=== PATIENT | female | born 1970 | race Hispanic/Latino ===

== ENCOUNTER 2016-05-04 12:51 | Inpatient (IN) | payer MEDICAID ==
--- NOTE | 2016-05-04 13:08 | Emergency Department Report ---
Chief Complaint: Neuro Symptoms/Deficit Stated Complaint: LFT SIDE NUMBNESS Time Seen by Provider: 05/04/16 13:07 - HPI History of Present Illness: Patient here reports that she's having left-sided numbness and tingling especially to her arm. She reports that she is weak on the left side. She says she woke up this morning noted around 9:00 and she started experiencing the symptoms. Patient is a diabetic and blood glucoses less than 250. She denies any chest pain or shortness of breath. Patient reports headache but it is not new she says she has regular headaches. any history of hypertension, elevated cholesterol, anxiety and diabetes. She reports that the left side of her face is also numb. - ROS Review of Systems: All systems are negative unless stated in HPI above. - Exam Vital Signs: Vital Signs 05/04/16 12:59 Temperature 98.8 F Pulse Rate 94 H Respiratory 18 Rate Blood Pressure 137/92 O2 Sat by Pulse 96 Oximetry Physical Exam: General: This is a 45-year-old female well-nourished well-developed that is nontoxic in appearance. Mini-Neuro: GCS of 15. Positive left pronator drift. Mild left facial droop when smiling. 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 Alert and oriented 3. CV: S1, S2. Regular rate and rhythm. MSE screening note: Focused history and physical exam performed. Due to findings the following was ordered:see [facility] ED Medical Decision Making - Medical Decision Making Medical decision making: Patient seen by provider in triage area. Appropriate protocol activated and patient to main ED to be seen by physician. ED Disposition for MSE Condition: Stable
--- NOTE | 2016-05-04 13:36 | Cat Scan Report ---
CT HEAD WITHOUT CONTRAST: HISTORY: CVA. Serial contiguous axial images were obtained through the cranium. Intravenous contrast material was not administered. The ventricles are normal in size and appearance. There is no mass effect or midline shift. No areas of abnormally increased or decreased attenuation are seen. No mass lesion is seen. The mastoid air cells and visualized portions of the sinuses are normal. IMPRESSION: Cranial CT scan within normal limits. These findings were discussed with Dr. Landaverde in the emergency department at 1331 hrs.
[2016-05-04 13:50] LABS: Basophils % (Auto) 0.6 % (0.0-1.8); Eosinophils % (Auto) 2.6 % (0.0-4.3); Hematocrit 48.7 % (30.3-42.9); Mean Corpuscular HGB Conc 33 % (30-34); Mean Corpuscular Hemoglobin 30 pg (28-32); Mean Corpuscular Volume 92 fl (79-97); Platelet Count 278 K/mm3 (140-440); Red Blood Count 5.31 M/mm3 (3.65-5.03); White Blood Count 11.2 K/mm3 (4.5-11.0)
[2016-05-04 14:00] LABS: INR 1.01 (0.87-1.13); Partial Thromboplastin Time 27.3 Sec. (24.2-36.6)
[2016-05-04 14:17] LABS: Anion Gap 18 mmol/L; Blood Urea Nitrogen 11 mg/dL (7-17); Calcium 8.5 mg/dL (8.4-10.2); Carbon Dioxide 25 mmol/L (22-30); Chloride 95.4 mmol/L (98-107); Glucose 316 mg/dL (65-100); Potassium 4.3 mmol/L (3.6-5.0); Sodium 134 mmol/L (137-145)
[2016-05-04 14:19] LABS: Creatine Kinase MB 1.2 ng/mL (0.0-4.0)
[2016-05-04 14:21] LABS: Alanine Aminotransferase 12 units/L (7-56); Albumin 3.8 g/dL (3.9-5); Albumin/Globulin Ratio 1.2 %; Alkaline Phosphatase 83 units/L (35-129); Bilirubin,Total 0.4 mg/dL (0.1-1.2); Creatine Kinase 35 units/L (30-135); Total Protein 7.1 g/dL (6.3-8.2)
--- NOTE | 2016-05-04 14:25 | Emergency Department Report ---
ED Neuro Deficit HPI - General Chief Complaint: Neuro Symptoms/Deficit Stated Complaint: LFT SIDE NUMBNESS Time Seen by Provider: 05/04/16 13:08 Source: patient Mode of arrival: Ambulatory Limitations: No Limitations - History of Present Illness Initial Comments: Patient states that when she awoke somewhat before 9 AM she felt as if she slept on her left side. She felt like the left side was swollen and tingly. She later got up and felt like her arm and leg were heavy. She was able to walk however. She essentially describes persistent paresthesias involving the left arm and leg and face. She denies any visual change, difficulty in speech or comprehension. She states she has never had symptoms like this in the past. The patient has a history of insulin-dependent diabetes and hypertension. She does think there is a history of strokes in her family because "they are diabetic". She complains of a mild headache which is diffuse. -: Gradual, hour(s) Location: left face, left arm, left leg Presenting Symptoms: Present: Weak/Paralyzed One Side History of same: No Place: home Severity: mild, moderate Quality: weak, tingling Improves With: none On Anticoagulants: No Context: other (wake-up symptoms) Associated Symptoms: denies other symptoms - Related Data Home Medications: Home Medications Medication Instructions Recorded Confirmed Last Taken ALPRAZolam [Xanax TAB] 0.25 mg PO BID PRN 05/04/16 05/04/16 Unknown FLUoxetine HCL [PROzac] 80 mg PO QDAY 05/04/16 05/04/16 Unknown FLUoxetine [PROzac] 20 mg PO QDAY 05/04/16 05/04/16 Unknown Insulin Glargine [Lantus] 0 units SQ QHS 05/04/16 05/04/16 Unknown Insulin Lispro [Humalog 100 0 units SQ BID 05/04/16 05/04/16 Unknown UNITS/ML Kwikpen] Lisinopril [Zestril TAB] 10 mg PO QDAY 05/04/16 05/04/16 Unknown Sulfacetamide Sodium/Sulfur 400 mg PO DAILY 05/04/16 05/04/16 Unknown [Avar-E Green Emollient Cream] clonazePAM [Klonopin] 2 mg PO BID 05/04/16 05/04/16 Unknown metFORMIN [Glucophage] 500 mg PO BID 05/04/16 05/04/16 Unknown Allergies/Adverse Reactions: Allergies Allergy/AdvReac Type Severity Reaction Status Date / Time codeine Allergy Shortness Verified 05/04/16 12:56 of Breath iodine Allergy Hives Verified 05/04/16 12:56 Latex, Natural Rubber AdvReac Hives Verified 05/04/16 12:56 ED Review of Systems ROS: Stated complaint: LFT SIDE NUMBNESS Other details as noted in HPI Constitutional: denies: chills, fever Eyes: denies: eye pain, eye discharge, vision change ENT: denies: ear pain, throat pain Respiratory: denies: cough, shortness of breath, wheezing Cardiovascular: denies: chest pain, palpitations Endocrine: no symptoms reported Gastrointestinal: denies: abdominal pain, nausea, diarrhea Genitourinary: denies: urgency, dysuria, discharge Musculoskeletal: denies: back pain, joint swelling, arthralgia Skin: denies: rash, lesions Neurological: headache, weakness, paresthesias Psychiatric: denies: anxiety, depression Hematological/Lymphatic: denies: easy bleeding, easy bruising ED Past Medical Hx - Past Medical History Previous Medical History?: Yes Hx Hypertension: Yes Hx Diabetes: Yes Hx Psychiatric Treatment: Yes (anxiety) Additional medical history: high cholesterol - Surgical History Past Surgical History?: Yes Hx Cholecystectomy: Yes Additional Surgical History: Left carpel tunnel release - Social History Smoking Status: Current Every Day Smoker Substance Use Type: Prescribed - Medications Home Medications: Home Medications Medication Instructions Recorded Confirmed Last Taken Type ALPRAZolam [Xanax TAB] 0.25 mg PO BID PRN 05/04/16 05/04/16 Unknown History FLUoxetine HCL [PROzac] 80 mg PO QDAY 05/04/16 05/04/16 Unknown History FLUoxetine [PROzac] 20 mg PO QDAY 05/04/16 05/04/16 Unknown History Insulin Glargine [Lantus] 0 units SQ QHS 05/04/16 05/04/16 Unknown History Insulin Lispro [Humalog 100 0 units SQ BID 05/04/16 05/04/16 Unknown History UNITS/ML Kwikpen] Lisinopril [Zestril TAB] 10 mg PO QDAY 05/04/16 05/04/16 Unknown History Sulfacetamide Sodium/Sulfur 400 mg PO DAILY 05/04/16 05/04/16 Unknown History [Avar-E Green Emollient Cream] clonazePAM [Klonopin] 2 mg PO BID 05/04/16 05/04/16 Unknown History metFORMIN [Glucophage] 500 mg PO BID 05/04/16 05/04/16 Unknown History ED Neuro Physical Exam - General Limitations: No Limitations General appearance: alert, in no apparent distress Suspected Stroke: Yes - Head Head exam: Present: atraumatic, normocephalic - Eye Eye exam: Present: normal appearance, PERRL, EOMI. Absent: scleral icterus - ENT ENT exam: Present: normal exam, mucous membranes moist - Neck Neck exam: Present: normal inspection - Respiratory Respiratory exam: Present: normal lung sounds bilaterally. Absent: respiratory distress - Cardiovascular Cardiovascular Exam: Present: regular rate, normal rhythm. Absent: systolic murmur, diastolic murmur, rubs, gallop - GI/Abdominal GI/Abdominal exam: Present: soft, normal bowel sounds. Absent: distended, tenderness, guarding, rebound - Extremities Exam Extremities exam: Present: normal inspection - Back Exam Back exam: Present: normal inspection - Neurological Exam Neurological exam: Present: alert, oriented X3, CN II-XII intact, motor sensory deficit - NIHSS Assessment Interval: Baseline 1a. Level of Consciousness: alert 1b. LOC Questions: answers correctly 1c. LOC Commands: performs tasks correctly 2. Best Gaze: normal 3. Visual: no visual loss 4. Facial Palsy: normal symmetrical movement 5b. Motor Arm Right: no drift 5a. Motor Arm Left: drift 6a. Motor Leg Left: no drift 6b. Motor Leg Right: no drift 7. Limb Ataxia: absent 8. Sensory: mild/moderate sensory loss 9. Best Language: no aphasia 10. Dysarthria: normal 11. Extinction/Inattention: no abnormality Total Score: 2 Stroke Severity: Minor Stroke - Psychiatric Psychiatric exam: Present: normal affect, normal mood - Skin Skin exam: Present: warm, dry, intact, normal color. Absent: rash ED Course Vital Signs 05/04/16 05/04/16 05/04/16 12:59 13:35 13:48 Temperature 98.8 F Pulse Rate 94 H Respiratory 18 18 Rate Blood Pressure 137/92 128/91 O2 Sat by Pulse 96 Oximetry 05/04/16 14:00 Temperature Pulse Rate 82 Respiratory 19 Rate Blood Pressure 128/82 O2 Sat by Pulse Oximetry - Reevaluation(s) Reevaluation #1: Discussed with Dr. Allen. Patient to be admitted by the hospitalist service. 05/04/16 15:31 - Lab Data Result diagrams: 05/04/16 13:41 05/04/16 13:41 Lab Results 05/04/16 05/04/16 05/04/16 Range/Units 13:19 13:41 13:41 WBC 11.2 H (4.5-11.0) K/mm3 RBC 5.31 H (3.65-5.03) M/mm3 Hgb 16.0 H (10.1-14.3) gm/dl Hct 48.7 H (30.3-42.9) % MCV 92 (79-97) fl MCH 30 (28-32) pg MCHC 33 (30-34) % RDW 14.0 (13.2-15.2) % Plt Count 278 (140-440) K/mm3 Lymph % (Auto) 28.6 (13.4-35.0) % Talbot % (Auto) 4.8 (0.0-7.3) % Eos % (Auto) 2.6 (0.0-4.3) % Baso % (Auto) 0.6 (0.0-1.8) % Lymph # 3.2 (1.2-5.4) K/mm3 Talbot # 0.5 (0.0-0.8) K/mm3 Eos # 0.3 (0.0-0.4) K/mm3 Baso # 0.1 (0.0-0.1) K/mm3 Seg Neutrophils % 63.4 (40.0-70.0) % Seg Neutrophils # 7.1 (1.8-7.7) K/mm3 PT 13.2 (12.2-14.9) Sec. INR 1.01 (0.87-1.13) APTT 27.3 (24.2-36.6) Sec. Thrombin Time (15.1-19.6) Sec. Sodium (137-145) mmol/L Potassium (3.6-5.0) mmol/L Chloride (98-107) mmol/L Carbon Dioxide (22-30) mmol/L Anion Gap mmol/L BUN (7-17) mg/dL Creatinine (0.7-1.2) mg/dL Estimated GFR ml/min BUN/Creatinine Ratio % Glucose (65-100) mg/dL POC Glucose 264 H (70-105) Calcium (8.4-10.2) mg/dL Total Bilirubin (0.1-1.2) mg/dL Direct Bilirubin (0-0.2) mg/dL AST (5-40) units/L ALT (7-56) units/L Alkaline Phosphatase (35-129) units/L Total Creatine Kinase (30-135) units/L CK-MB (CK-2) (0.0-4.0) ng/mL CK-MB (CK-2) Rel Index (0-4) Troponin T (0.00-0.029) ng/mL Total Protein (6.3-8.2) g/dL Albumin (3.9-5) g/dL Albumin/Globulin Ratio % 05/04/16 05/04/16 05/04/16 Range/Units 13:41 13:41 13:41 WBC (4.5-11.0) K/mm3 RBC (3.65-5.03) M/mm3 Hgb (10.1-14.3) gm/dl Hct (30.3-42.9) % MCV (79-97) fl MCH (28-32) pg MCHC (30-34) % RDW (13.2-15.2) % Plt Count (140-440) K/mm3 Lymph % (Auto) (13.4-35.0) % Talbot % (Auto) (0.0-7.3) % Eos % (Auto) (0.0-4.3) % Baso % (Auto) (0.0-1.8) % Lymph # (1.2-5.4) K/mm3 Talbot # (0.0-0.8) K/mm3 Eos # (0.0-0.4) K/mm3 Baso # (0.0-0.1) K/mm3 Seg Neutrophils % (40.0-70.0) % Seg Neutrophils # (1.8-7.7) K/mm3 PT (12.2-14.9) Sec. INR (0.87-1.13) APTT (24.2-36.6) Sec. Thrombin Time 23.8 H (15.1-19.6) Sec. Sodium 134 L (137-145) mmol/L Potassium 4.3 (3.6-5.0) mmol/L Chloride 95.4 L (98-107) mmol/L Carbon Dioxide 25 (22-30) mmol/L Anion Gap 18 mmol/L BUN 11 (7-17) mg/dL Creatinine 0.5 L (0.7-1.2) mg/dL Estimated GFR > 60 ml/min BUN/Creatinine Ratio 22.00 % Glucose 316 H (65-100) mg/dL POC Glucose (70-105) Calcium 8.5 (8.4-10.2) mg/dL Total Bilirubin 0.4 (0.1-1.2) mg/dL Direct Bilirubin < 0.2 (0-0.2) mg/dL AST 13 (5-40) units/L ALT 12 (7-56) units/L Alkaline Phosphatase 83 (35-129) units/L Total Creatine Kinase 35 (30-135) units/L CK-MB (CK-2) 1.2 (0.0-4.0) ng/mL CK-MB (CK-2) Rel Index 3.4 (0-4) Troponin T < 0.010 (0.00-0.029) ng/mL Total Protein 7.1 (6.3-8.2) g/dL Albumin 3.8 L (3.9-5) g/dL Albumin/Globulin Ratio 1.2 % - EKG Data -: EKG Interpreted by Me EKG shows normal: sinus rhythm, axis, intervals, QRS complexes, ST-T waves Interpretation: normal EKG - Radiology Data Radiology results: report reviewed interpreted by me: No intracranial abnormality per radiologist - Medical Decision Making The patient is not a candidate for TPA. Her extensor symptoms on awakening. Her stroke score is 1-2. She will be given aspirin and admitted to the hospitalist service for further care and evaluation. - Thrombolytic Inclusion/Exclusion Thrombolytic Exclusion Criteria: Onset of Symptoms Unknown, Symptom Onset > 3 Hours Critical care attestation.: If time is entered above; I have spent that time in minutes in the direct care of this critically ill patient, excluding procedure time. ED Disposition Clinical Impression: Hyperglycemia due to type 2 diabetes mellitus, Anxiety CVA (cerebral vascular accident) Qualifiers: CVA mechanism: unspecified Qualified Code(s): I63.9 - Cerebral infarction, unspecified Disposition: OP ADMITTED IP TO THIS HOSP Is pt being admited?: Yes Does the pt Need Aspirin: Yes Condition: Stable Referrals: Kory YANCEY [Other] - 3-5 Days Time of Disposition: 15:31
[2016-05-04 14:34] LABS: Bilirubin,Direct < 0.2 mg/dL (0-0.2)
[2016-05-04] MEDS ORDERED: NOVOLOG SUB-Q ONE (15:33)
[2016-05-04] MEDS ORDERED: TYLENOL PO ONE (15:34)
[2016-05-04] MEDS ORDERED: ATIVAN PO ONE (15:35)
[2016-05-04 15:52] LABS: Urine Drugs of Abuse Note Disclamer
[2016-05-04] MEDS: ASPIRIN PO SCH (15:57)
[2016-05-04 16:13] LABS: Bilirubin,Urine NEG (Negative); Blood,Urine NEG (Negative); Ketones,Urine NEG (Negative); Leukocyte Esterase,Urine NEG (Negative); Mucus,Urine FEW /HPF; Nitrite,Urine NEG (Negative); Protein,Urine <15 mg/dL mg/dL (Negative); Urobilinogen,Urine < 2.0 mg/dL (<2.0)
[2016-05-04] MEDS ORDERED: D50W (25GM) IV PRN ×2 (18:16→18:31)
[2016-05-04] MEDS ORDERED: ATIVAN IV PRN (18:22)
[2016-05-04] MEDS ORDERED: XANAX PO PRN (18:25)
[2016-05-04] MEDS ORDERED: SULFUR PO SCH (18:30)
[2016-05-04] MEDS ORDERED: SULFACETAMIDE SODIUM PO SCH (18:30)
[2016-05-04 19:06] LABS: Basophils % (Auto) 0.4 % (0.0-1.8); Eosinophils % (Auto) 3.3 % (0.0-4.3); Hematocrit 48.2 % (30.3-42.9); Hemoglobin 16.1 gm/dl (10.1-14.3); Mean Corpuscular HGB Conc 33 % (30-34); Mean Corpuscular Hemoglobin 30 pg (28-32); Mean Corpuscular Volume 90 fl (79-97); Platelet Count 269 K/mm3 (140-440); Red Blood Count 5.37 M/mm3 (3.65-5.03); Red Cell Distribution Width 13.8 % (13.2-15.2); White Blood Count 11.8 K/mm3 (4.5-11.0)
[2016-05-04 19:25] LABS: Creatine Kinase MB 1.1 ng/mL (0.0-4.0)
[2016-05-04 19:26] LABS: Creatine Kinase 33 units/L (30-135)
[2016-05-04 19:27] LABS: Alanine Aminotransferase 12 units/L (7-56); Albumin 3.7 g/dL (3.9-5); Albumin/Globulin Ratio 1.2 %; Alkaline Phosphatase 82 units/L (35-129); Bilirubin,Total 0.3 mg/dL (0.1-1.2); Blood Urea Nitrogen 14 mg/dL (7-17); Calcium 8.7 mg/dL (8.4-10.2); Carbon Dioxide 27 mmol/L (22-30); Chloride 96.2 mmol/L (98-107); Glucose 304 mg/dL (65-100); INR 1.03 (0.87-1.13); Sodium 135 mmol/L (137-145); Total Protein 6.8 g/dL (6.3-8.2)
[2016-05-04 19:39] LABS: Anion Gap 16 mmol/L
[2016-05-04] MEDS: LOVENOX SUB-Q SCH (20:23)
[2016-05-04] MEDS: PROzac PO SCH (20:23)
[2016-05-04] MEDS ORDERED: NON-FORMULARY (Clonazepam [Klonopin] 2 MG) PO SCH (22:00)
--- NOTE | 2016-05-04 23:54 | History and Physical Report ---
History of Present Illness Date of examination: 05/04/16 Date of admission: 05/04/16 18:31 Chief complaint: Numbness in the left upper and lower extremities one day duration History of present illness: Patient is a 45-year-old lady was a history of hypertension and diabetes mellitus woke up at about 8:30 AM today with numbness in the left upper and lower extremities. Denies any slow speech. No facial droop. Has occasional generalized headache. No nausea no vomiting. No blurred vision. Came to the emergency department where CT scan of the brain was unremarkable for any acute event. Weakness on the left upper and lower extremity was unimpressive. Patient also has a history of anxiety disorder. Admission was requested for further evaluation. Past History Past Medical History: diabetes, hypertension, hyperlipidemia (anxiety disorder, depression.), other (cardiac cath) Past Surgical History: cholecystectomy, Other (left carpal tunnel surgery) Social history: lives with family, smoking (smoked one pack of therefore the past 30 years. Quit 2 days ago.), alcohol abuse (occasional alcohol ingestion) Family history: diabetes (in her mother) Medications and Allergies Allergies Allergy/AdvReac Type Severity Reaction Status Date / Time codeine Allergy Shortness Verified 05/04/16 12:56 of Breath iodine Allergy Hives Verified 05/04/16 12:56 Latex, Natural Rubber AdvReac Hives Verified 05/04/16 12:56 Home Medications Medication Instructions Recorded Confirmed Last Taken Type ALPRAZolam [Xanax TAB] 0.25 mg PO BID PRN 05/04/16 05/04/16 Unknown History FLUoxetine HCL [PROzac] 80 mg PO QDAY 05/04/16 05/04/16 Unknown History FLUoxetine [PROzac] 20 mg PO QDAY 05/04/16 05/04/16 Unknown History Insulin Glargine [Lantus] 0 units SQ QHS 05/04/16 05/04/16 Unknown History Insulin Lispro [Humalog 100 0 units SQ BID 05/04/16 05/04/16 Unknown History UNITS/ML Kwikpen] Lisinopril [Zestril TAB] 10 mg PO QDAY 05/04/16 05/04/16 Unknown History Sulfacetamide Sodium/Sulfur 400 mg PO DAILY 05/04/16 05/04/16 Unknown History [Avar-E Green Emollient Cream] clonazePAM [Klonopin] 2 mg PO BID 05/04/16 05/04/16 Unknown History metFORMIN [Glucophage] 500 mg PO BID 05/04/16 05/04/16 Unknown History Active Meds: Active Medications Alprazolam (Xanax) 0.25 mg PO BID PRN PRN Reason: Anxiety Aspirin (Aspirin) 325 mg PO QDAY [facility] Last Admin: 05/04/16 15:57 Dose: 325 mg Clonazepam (Klonopin) 2 mg PO BID [facility] Last Admin: 05/04/16 23:45 Dose: 2 mg Dextrose (D50w (25gm)) 50 ml IV PRN PRN PRN Reason: Hypoglycemia Enoxaparin Sodium (Lovenox) 40 mg SUB-Q QDAY [facility] Last Admin: 05/04/16 20:23 Dose: 40 mg Fluoxetine HCl (Prozac) 20 mg PO QDAY [facility] Last Admin: 05/04/16 20:23 Dose: 20 mg Insulin Human Regular (Novolin R) 0 units SUB-Q ACHS [facility] PRN Reason: Protocol Last Admin: 05/04/16 23:45 Dose: 6 units Lisinopril (Zestril) 10 mg PO QDAY [facility] Lorazepam (Ativan) 1 mg IV Q4H PRN PRN Reason: Anxiety Last Admin: 05/04/16 19:46 Dose: 1 mg Miscellaneous Medication (Sulfacetamide Sodium/Sulfur [Avar-E Green Emollient Cream]) 400 mg PO DAILY [facility] Review of Systems All systems: negative Constitutional: weight loss, no weight gain, no fever, no anorexia Ears, nose, mouth and throat: no ear pain, no ear discharge, no tinnitis, no decreased hearing Cardiovascular: no chest pain, no orthopnea, no palpitations Respiratory: no cough, no cough with sputum, no congestion Gastrointestinal: no abdominal pain, no nausea, no vomiting Musculoskeletal: no neck stiffness, no neck pain, no shooting arm pain Integumentary: no rash, no pruritis Neurological: no head injury, no vertigo, no gait dysfunction Psychiatric: no anxiety, no memory loss, no change in sleep habits Endocrine: no cold intolerance, no heat intolerance, no polyphagia Hematologic/Lymphatic: no easy bruising, no easy bleeding Allergic/Immunologic: no urticaria Exam - Constitutional Vitals: Temp Pulse Resp BP Pulse Ox 97.8 F 96 H 20 119/74 95 05/04/16 21:43 05/04/16 21:43 05/04/16 21:43 05/04/16 21:43 05/04/16 21:43 General appearance: Present: no acute distress - EENT Eyes: Present: PERRL ENT: hearing intact - Neck Neck: Present: supple - Respiratory Respiratory: bilateral: CTA - Cardiovascular Rhythm: regular Heart Sounds: Present: S1 & S2 - Extremities Extremities: no ischemia, No edema Extremity abnormal: edema - Abdominal General gastrointestinal: Present: soft, non-tender, non-distended - Integumentary Integumentary: Present: clear, warm, dry - Musculoskeletal Musculoskeletal: strength equal bilaterally - Psychiatric Psychiatric: appropriate mood/affect - Neurologic Neurologic: CNII-XII intact Results - Labs CBC & Chem 7: 05/04/16 18:47 05/04/16 18:47 Labs: Abnormal lab results 05/04/16 05/04/16 05/04/16 Range/Units 18:47 18:47 22:15 WBC 11.8 H (4.5-11.0) K/mm3 RBC 5.37 H (3.65-5.03) M/mm3 Hgb 16.1 H (10.1-14.3) gm/dl Hct 48.2 H (30.3-42.9) % Sodium 135 L (137-145) mmol/L Chloride 96.2 L (98-107) mmol/L Creatinine 0.4 L (0.7-1.2) mg/dL Glucose 304 H (65-100) mg/dL POC Glucose 311 H (70-105) Albumin 3.7 L (3.9-5) g/dL Assessment and Plan - Patient Problems (1) CVA (cerebral vascular accident) Diagnosis Date: 05/04/16 Current Visit: Yes Status: Acute Qualifiers: CVA mechanism: unspecified Qualified Code(s): I63.9 - Cerebral infarction, unspecified Plan to address problem: Commence patient on aspirin patient having undergone, Lovenox, neuro check every 4, PT OT evaluation and treatment, statin, MRI/MRA of the brain. Carotid Doppler. Echocardiogram. (2) Hyperglycemia due to type 2 diabetes mellitus Diagnosis Date: 05/04/16 Current Visit: Yes Status: Acute Qualifiers: Diabetes mellitus senior care insulin use: with senior care use Qualified Code( s): E11.65 - Type 2 diabetes mellitus with hyperglycemia; Z79.4 - joint terminal attack controller ( current) use of insulin Plan to address problem: Obtain A1c, Accu-Chek before meals and at bedtime, 2000 ADA diet. (3) Anxiety Diagnosis Date: 05/04/16 Current Visit: Yes Status: Acute Plan to address problem: Commence patient on Ativan and clonazepam the patient had been on at home
[2016-05-05] MEDS ORDERED: DESYREL PO ONE (01:00)
--- NOTE | 2016-05-05 02:42 | Admit Criteria Form ---
Admission Criteria Documentation: STROKE: ISCHEMIC Clinical Indications for Admission to Inpatient Care (Place 'X' for any and all applicable criteria): Admission is indicated for ANY ONE of the following(1)(2)(3)(4): [X ]I. Acute stroke Extended stay beyond goal length of stay may be needed for(1)(2) [ ]a) Major deficit or clinical deterioration [ ]b) Hospital-acquired infection (eg, urinary tract infection, pneumonia) [ ]c) Embolic cause of stroke [ ]d) Venous thromboembolism(9) [ ]e) Seizures [ ]f) Bleeding (eg, cerebral) [ ]g) Increased intracranial pressure [ ]h) Comorbidities [ ]i) Surgical intervention The original [facility] content created by [email or web address] has been revised. The portions of the content which have been revised are identified through the use of italic text or in bold, and [facility] has neither reviewed nor approved the modified material. All other unmodified content is copyright [facility]. Please see references footnoted in the original [facility] edition 2016 Admission Criteria Met: Yes
[2016-05-05] MEDS ORDERED: ZESTRIL PO SCH (10:00)
--- NOTE | 2016-05-05 10:09 | Magnetic Resonance Report ---
MRI OF THE BRAIN WITHOUT CONTRAST: HISTORY: CVA PROCEDURE: Multiplanar, multisequence MR imaging of the brain without IV contrast was performed. FINDINGS: Compared to the CT brain without contrast dated 05/04/16. The brain parenchyma signal intensity and its cason white interface are within normal limits on all sequences. No evidence for acute ischemia, hemorrhage or mass. No chronic infarct or extra-axial fluid collection. The midline structures are central. The basal cisterns are patent. Normal ventricular size. The orbital cavities and sella turcica demonstrate no abnormality. The visualized paranasal sinuses and mastoid air cells are well aerated. IMPRESSION: Unremarkable non-enhanced MRI of the brain.
[2016-05-05] MEDS: ASPIRIN PO SCH (13:13)
[2016-05-05] MEDS: PROzac PO SCH (13:14)
[2016-05-05] MEDS: LOVENOX SUB-Q SCH (13:14)
--- NOTE | 2016-05-05 15:49 | Discharge Summary ---
Providers - Providers Date of Admission: 05/04/16 18:31 Date of discharge: 05/05/16 Attending physician: VIOLETTE EGAN 05/05/16 08:46 Physical Therapy Evaluation and Treat [CONS] Routine Comment: Reason For Exam: CVA Hospitalization Condition: Fair Disposition: DISCHARGED TO HOME OR SELFCARE - Discharge Diagnoses (1) TIA (transient ischemic attack) Status: Acute (2) Diabetes mellitus type 2 in obese Status: Acute Core Measure Documentation - Palliative Care Palliative Care/ Comfort Measures: Not Applicable - Core Measures Any of the following diagnoses?: stroke - Stroke Discharge Requirements Anticoag for atrial fib/atrial flutter: Not Applicable Antithrombotic for ischemic stroke: Yes Exam - Constitutional Vitals: Temp Pulse Resp BP Pulse Ox 98.3 F 92 H 20 135/89 93 05/05/16 12:47 05/05/16 12:47 05/05/16 12:47 05/05/16 12:47 05/05/16 12:47 Plan Activity: advance as tolerated Diet: low fat, low cholesterol, low salt, diabetic Additional Instructions: 1.Follow up with PCP in 1 week. Follow up with: Kory YANCEY [Other] - 3-5 Days Prescriptions: Aspirin EC [Aspirin Enteric Coated TAB] 325 mg PO QDAY #30 tablet. Simvastatin [Zocor TAB] 20 mg PO QHS #30 tablet
[2016-05-05 16:30] LABS: Basophils % (Auto) 0.5 % (0.0-1.8); Eosinophils % (Auto) 2.2 % (0.0-4.3); Hemoglobin 15.5 gm/dl (10.1-14.3); Mean Corpuscular HGB Conc 34 % (30-34); Mean Corpuscular Hemoglobin 30 pg (28-32); Mean Corpuscular Volume 90 fl (79-97); Platelet Count 244 K/mm3 (140-440); Red Blood Count 5.12 M/mm3 (3.65-5.03); Red Cell Distribution Width 14.2 % (13.2-15.2)
[2016-05-05 16:42] LABS: Cholesterol 202 mg/dL (50-199); HDL Cholesterol 27 mg/dL (40-59); LDL Cholesterol,Direct TNR mg/dL (50-130); Triglycerides 505 mg/dL (2-149)
[2016-05-05 17:24] VITALS: BP 108/67
--- NOTE | 2016-05-06 14:26 | Echocardiography Report ---
Transthoracic Echocardiogram Indication: STROKE BP: 122/70 Findings Left Ventricle: The left ventricular chamber size is normal. Mild concentric left ventricular hypertrophy is observed. Global left ventricular wall motion and contractility are within normal limits. Global left ventricular systolic function is normal. The estimated ejection fraction is 55-60%. Abnormal left ventricular diastolic filling is observed, consistent with impaired relaxation. Left Atrium: The left atrium is normal in size with no visual thrombus identified. Right Ventricle: The right ventricular cavity size is normal. The right ventricular global systolic function is normal. Right Atrium: The right atrium appears normal. The interatrial septum appears normal. Aortic Valve: The aortic valve is trileaflet. The aortic valve leaflets are mildly thickened. There is no evidence of aortic regurgitation. There is no evidence of aortic stenosis. Mitral Valve: The mitral valve leaflets appear myxomatous. The mitral valve leaflets are mildly thickened. There is trace of mitral regurgitation. There is no evidence of mitral stenosis. Tricuspid Valve: The tricuspid valve leaflets are normal. There is trace tricuspid regurgitation. The right ventricular systolic pressure is calculated at 22 mmHg. No pulmonary hypertension is noted. There is no tricuspid stenosis. Pulmonic Valve: The pulmonic valve appears normal. There is no evidence of pulmonic regurgitation. There is no pulmonic stenosis. Pericardium: A trivial pericardial effusion is visualized. Aorta: There is no dilatation of the ascending aorta. There is no dilatation of the aortic arch. There is no dilatation of the descending thoracic aorta. There is no dilatation of the aortic root. Venous: The inferior vena cava appears normal in size. Contrast: Intravenous agitated saline contrast was used to assess intracardiac shunting. Measurements Chambers MM Name Value Normal Range Ao root diameter (MM) 3.3 cm (2 - 3.7) LA dimension (AP) MM 3 cm (1.9 - 4) LA:Ao ratio (MM) 0.91 ratio - AV cusp separation (MM) 1.3 cm (1.5 - 2.6) Chambers 2D Name Value Normal Range RVIDd (AP) 2D 2.9 cm (0.9 - 2.6) IVSd (2D) 1.09 cm (0.6 - 1.1) LVPWd (2D) 1 cm (0.6 - 1.1) IVS:LVPW ratio (2D) 1.09 ratio - LVIDd (2D) 4.08 cm (3.7 - 5.6) LVIDs (2D) 2.77 cm (2 - 3.8) LV FS (Teichholz) (2D) 32.1 % - LV FS (cube) (2D) 32.1 % - EF Teichholz (2D) 60.8 % - LA dimension (AP) 2D 2.7 cm (1.9 - 4) Volumes/Mass Name Value Normal Range LA ESV SP 4CH (MOD) 23 ml - LA ESV SP 2CH (MOD) 32 ml - LA ESV BP (MOD) 27 ml - LA ESV BP (MOD) index 13.4 ml/m2 - Diastolic/Systolic Function Name Value Normal Range MV E-wave Vmax 0.59 m/sec - MV deceleration time 222 msec - MV A-wave Vmax 0.67 m/sec - MV E:A ratio 0.9 ratio - LV septal e' Vmax 0.06 m/sec - LV lateral e' Vmax 0.08 m/sec - LV E:e' septal ratio 10.6 ratio - LV E:e' lateral ratio 7.2 ratio - Aortic Valve Name Value Normal Range AV VTI 22.9 cm - AV mean gradient 4 mmHg - LVOT diameter 2 cm - LVOT VTI 17.9 cm - LVOT mean gradient 3 mmHg - SV LVOT 56 ml - NATALIIA (continuity VTI) 2.45 cm2 - Mitral Valve Name Value Normal Range MV PHT 47 msec - MVA (PHT) 4.68 cm2 - Tricuspid Valve Name Value Normal Range TR Vmax 2.17 m/sec - TR peak gradient 19 mmHg - RAP 3 mmHg - RVSP 22 mmHg - Pulmonic Valve/Qp:Qs Name Value Normal Range PV Vmax 1 m/sec - PV peak gradient 4 mmHg - PV acceleration time 116 msec -
--- NOTE | 2016-05-07 11:12 | Vascular Lab Report ---
CAROTID DUPLEX STUDY: RIGHT PSVEDV CCA [id number] CCA [id number] ICA [id number] ICA MID:[id number] ICA [id number] ECA: [id number] VERT: 64 18 LEFT PSVEDV CCA [id number] CCA [id number] ICA PROX:[id number] ICA MID:[id number] ICA DIST:[id number] ECA: [id number] VERT: 62 16 REASON FOR EXAM: Stroke. COMMENTS ON THE RIGHT: Doppler frequency analysis is consistent with 16 to 49 percent diameter reduction of the internal carotid artery. Minimal amount of plaque is seen. The common carotid artery is patent. The external carotid artery is patent. The vertebral artery has antegrade flow. COMMENTS ON THE LEFT: Doppler frequency analysis is consistent with 16 to 49 percent diameter reduction of the internal carotid artery. Minimal amount of plaque is seen. The common carotid artery is patent. The external carotid artery is patent. The vertebral artery has antegrade flow. IMPRESSION: Less than 50% diameter reduction in the internal carotid arteries bilaterally. Consider repeat carotid artery duplex in 12 months.
== END 2016-05-05 17:26 | disposition home or self-care (01) | DRG 69 ==
LOC: ED 12:51 → 4A 18:31
PROVIDERS: ADMIT Family Medicine; ATTEND Internal Medicine
DX: G45.9 Transient cerebral ischemic attack, unspecified (principal); F41.9 Anxiety disorder, unspecified; E11.65 Type 2 diabetes mellitus with hyperglycemia; I10 Essential (primary) hypertension; F17.210 Nicotine dependence, cigarettes, uncomplicated; E78.5 Hyperlipidemia, unspecified; F32.9 Major depressive disorder, single episode, unspecified; E66.9 Obesity, unspecified; Z79.4 Long term (current) use of insulin; Z79.899 Other long term (current) drug therapy; Z90.49 Acquired absence of other specified parts of digestive tract; Z98.890 Other specified postprocedural states; Z83.3 Family history of diabetes mellitus; Z91.041 Radiographic dye allergy status; Z91.040 Latex allergy status; Z88.6 Allergy status to analgesic agent; Z68.39 Body mass index [BMI] 39.0-39.9, adult
CPT/HCPCS: 36415; 70450; 70551; 80048; 80053; 80061; 80074; 80307; 81001; 82550; 82553; 82962; 84484; 85025; 85610; 85670; 85730; 93005; 93010; 93306; 93880; 96372; 96374; 99406; J1650; J1815; J2060